=== PATIENT | female | born 1990 ===

== ENCOUNTER 2019-04-21 21:20 | Emergency (ER) | payer SELFPAY ==
[~2019-04-21] VITALS: Ht 152.4 cm; Wt 68.2 kg
[2019-04-21 21:23] VITALS: BP 109/58; TEMP 98.2
[2019-04-21 22:43] VITALS: PULSE 112
== END 2019-04-21 22:40 | disposition home or self-care (01) ==
LOC: COL.ER 21:20
DX: R21 Rash and other nonspecific skin eruption (principal); J45.909 Unspecified asthma, uncomplicated; F17.210 Nicotine dependence, cigarettes, uncomplicated; Z98.51 Tubal ligation status